=== PATIENT | female | born 1955 | race Caucasian/White ===

== ENCOUNTER → 2016-11-16 | Outpatient (CLI) | payer BC ==
[~2016-11-16] MED LIST: ASA CHILDREN'S81 MG PO; DITROPAN XL5 MG PO; IMDUR DPS30 MG PO; JUICE PLUS PO; MAALOX DPS30 ML PO; MACROBID 100 M100 MG PO; MILK OF MAGNESI10 ML PO; MIRALAX PACKET17 GM PO; NEXIUM 24HR20 M1 PO; NORCO 5-325 TA1 EACH PO; OXY IR DPS5 MG PO; PLAVIX75 MG PO; PRAVACHOL80 MG PO; PRISTIQ50 MG PO; SENOKOT DPS8.6 MG PO; TEARS NATURAL D15 ML OU; TYLENOL DPS325 MG PO; VITAMIN C1000 MG PO; XARELTO20 MG PO
== END | disposition home or self-care (01) ==
LOC: PTH.S 09:50
DX: Z01.818 Encounter for other preprocedural examination (principal)

== ENCOUNTER 2016-12-02 12:09 | Inpatient (IN) | payer BC ==
[~2016-12-02] VITALS: Ht 180.3 cm; Wt 105.8 kg
[2016-12-26] MEDS ORDERED: PRISTIQ50 MG PO (17:55)
[2016-12-26] MEDS ORDERED: XARELTO20 MG PO (17:55)
[2016-12-26] MEDS ORDERED: DITROPAN XL5 MG PO (17:55)
[2016-12-26] MEDS ORDERED: PRAVACHOL80 MG PO (17:55)
[2016-12-26] MEDS ORDERED: NEXIUM 24HR20 M1 PO (17:56)
[2016-12-26] MEDS ORDERED: IMDUR DPS30 MG PO (17:56)
[2016-12-26] MEDS ORDERED: PLAVIX75 MG PO (17:56)
[2016-12-26] MEDS ORDERED: ASA CHILDREN'S81 MG PO (17:57)
[2016-12-26] MEDS ORDERED: VITAMIN C1000 MG PO (17:57)
[2016-12-26] MEDS ORDERED: MACROBID 100 M100 MG PO (17:57)
[2016-12-26] MEDS ORDERED: TEARS NATURAL D15 ML OU (17:58)
[2016-12-26] MEDS ORDERED: JUICE PLUS PO (17:58)
[2016-12-26] MEDS ORDERED: MAALOX DPS30 ML PO (17:59)
[2016-12-26] MEDS ORDERED: MIRALAX PACKET17 GM PO (17:59)
[2016-12-26] MEDS ORDERED: TYLENOL DPS325 MG PO (17:59)
[2016-12-26] MEDS ORDERED: SENOKOT DPS8.6 MG PO (17:59)
[2016-12-26] MEDS ORDERED: MILK OF MAGNESI10 ML PO (18:00)
[2016-12-26] MEDS ORDERED: NORCO 5-325 TA1 EACH PO (18:00)
[2016-12-26] MEDS ORDERED: OXY IR DPS5 MG PO (18:00)
--- NOTE | 2017-01-02 07:28 | OR ---
ADMIT: 12/23/2016 RM/LOC: 522 [facility] MR#: [id number] 2620 [facility] [address] [place] [id number] KARISHMA HYATT [address] [place] [address] Operative/Delivery Room Report SEX: F AGE: 61 : 1955 SURGERY DATE: 12/23/2016 SURGEON: Sarkis Magaña MD [facility] AGENT: Heladio Sears PA-C. PREOPERATIVE DIAGNOSIS: Right knee arthritis. POSTOPERATIVE DIAGNOSIS: Right knee arthritis. PROCEDURE PERFORMED: Right total knee arthroplasty. IMPLANTS: DePuy Attune knee size 6 femur, size 5 tibia, 10 insert and a 38 patella. BLOOD LOSS: 100. TOURNIQUET TIME: 67 minutes. COMPLICATIONS: None. INDICATION: Karishma is a 61-year-old female with right knee arthritis. She had failed conservative management with injections, therapy and arthroscopic surgery in the past. After kind of discussing the risks, benefits and options for knee arthritis we discussed doing total knee arthroplasty. She was to proceed with that and so she is here for that today. DESCRIPTION OF PROCEDURE: The patient was identified in the preoperative holding area. Written informed consent was confirmed, site was marked. Brought to the OR, placed supine. Spinal anesthesia was induced and then MAC. Then we prepped and draped the right leg in the usual sterile fashion. Time- out was performed. Preop antibiotics were confirmed. We examined the leg, brought tourniquet up to 300 and then made a midline incision. I elevated the medial flap and made a standard medial parapatellar arthrotomy. Performed a medial peel and then excised the synovium and the fat pad. Drilled for the intramedullary femoral guide. Put the intramedullary guide in. Did note there was some distal femoral loss on the lateral side but the cut I made there kind of taking 9 off of the medial side and maybe 5 off the lateral side, but a nice concentric cut through the notch. Then presented the proximal tibia and removed the meniscus, and the contents of the notch. After presenting that, put the extramedullary guide on and cut about two off the lateral side, that was the low side and then put a gap tray checker. This got me a real nice well-aligned limited extension after doing the distal femur and proximal tibia cuts. Then went back to the femur, measured it to a 6, placed of cutting guide there, made my fourth cut and then cut for the box, drilled and punched for the keel for the tibia and put my trial components in. Measured up to a 10 insert. This got me real stable extension with full extension, but not too tight. Good stability varus valgus there in extension and then good A to P stability and flexion with good tracking of the patella. ADMIT: 12/23/2016 RM/LOC: 522 [facility] MR#: [id number] [address] [address] KARISHMA HYATT [address] [place] [id number] Operative/Delivery Room Report SEX: F AGE: 61 : 1955 I then everted the patella there and did a freehand cut. Measured a 38 patella punch for that and placed a trial component in there and that tracked very nicely and stable throughout range of motion. Once this was done, filled in the intramedullary guide hole, irrigated, injected 60 mL of 0.25% Marcaine with epinephrine in the remnant of the ACL, PCL, medial and lateral meniscus, the fat pad, synovium, the quadriceps tendon and then irrigated and dried the components. Drilled a couple of little holes in the sclerotic bone on the tibia. Then we mixed the cement on the back table, placed the cement on the components and cemented in the tibia, the femur and the patella with a trial insert in until it was fully cured. It was fully cured at about 13 minutes. Then removed the insert, took the tourniquet down, obtained hemostasis. There was no significant bleeding, just a little bit of general oozing but no big bleeders. After we got kind of good hemostasis and then irrigated once again and then placed a 10 poly in. Again this tracked very nicely and was very stable. We then closed in flexion with #1 Vicryl for the retinacular layer, 0 Vicryl for the deep subcu, 2-0 for the subcu, 4-0 Monocryl for the subcuticular stitch with a perineal glue dressing. She was then placed into a compressive wrap. Anesthesia was withdrawn. She was brought to the postoperative care unit in good condition. No complications. Postoperatively, she will resume Xarelto for DVT prophylaxis. Have OT, PT and pain control. Will have a consult by the medicine service for perioperative medical management. Anticipate her staying here for two days and will be discharged home. Sarkis Magaña MD/ jumana JOB #: [id number] CC: Sarkis Magaña, Attending Physician Teodoro Dietz, Family Physician
--- NOTE | 2017-01-05 07:48 | DS ---
ADMIT: 12/23/2016 RM/LOC: 522 [facility] MR#: [id number] [facility]#: [id number] 2620 [facility] [address] [place] [phone] KARISHMA HYATT [address] [place] [address] General Discharge Summary SEX: F AGE: 61 : 1955 ADMISSION DATE: 12/23/2016 DISCHARGE DATE: 12/25/2016 REASON FOR ADMISSION: Elective right total knee arthroplasty after failing conservative treatment. PREOPERATIVE DIAGNOSIS: Right knee arthritis. POSTOPERATIVE DIAGNOSIS: Right knee arthritis. PROCEDURE PERFORMED: Right total knee arthroplasty. SURGEON: Sarkis Magaña MD TABLE AND DESK FINISHER: Heladio Sears PA-C BLOOD LOSS: 100 mL. TOURNIQUET TIME: 67 minutes. COMPLICATIONS: None. PAST MEDICAL HISTORY: Significant for gallbladder surgery, hysterectomy, prior knee scopes, pulmonary embolism, carpal tunnel release, coronary artery disease, chronic recurrent urinary tract infection, urinary incontinence, hyperlipidemia, and gastroesophageal reflux. HOSPITAL COURSE: The patient was admitted on 12/23/2016, for elective right total knee arthroplasty done successfully without any complications by Dr. Magaña. The patient tolerated the procedure well. The patient did have some problems with the pain medication, tramadol. She felt like her face was on fire, so that was discontinued, and her pain was then controlled with Tylenol and oxycodone. As expected, she did suffer from some acute blood loss anemia. Her hemoglobin dropped to 10.3 on 12/25/2016, but she remained hemodynamically stable and not require blood transfusion. By postoperative day #2, she was safe and stable and participating well with physical therapy. She was ready for discharge home with plans for outpatient physical therapy. DISCHARGE MEDICATIONS: 1. Oxybutynin 5 mg daily. 2. Pristiq 50 mg in the evening. 3. Pravastatin 80 mg in the evening. 4. Xarelto 20 mg every morning for 10 days. 5. Clopidogrel 75 mg Wednesday and . 6. Isosorbide mononitrate 30 mg every morning. 7. Esomeprazole 40 mg in the evening. 8. Nitrofurantoin 100 mg at bedtime. 9. Aspirin 81 mg every morning. 10.Vitamin C 2000 mg twice daily. ADMIT: 12/23/2016 RM/LOC: 522 [facility] MR#: [id number] [address] [address] KARISHMA HYATT [address] [place], [place] [id number] General Discharge Summary SEX: F AGE: 61 : 1955 11.MiraLax 17 g every day. 12.Senokot 2 tablets twice daily. 13.Tylenol 650 mg every 6 hours as needed for pain. 14.Maalox 30 mL every 6 hours as needed for indigestion. 15.Milk of magnesia 10 mL daily as needed. 16.Oxycodone 5 mg every 6 hours as needed. 17.Muir 5/325 mg every 6 hours as needed for pain. DISCHARGE INSTRUCTIONS: The patient was discharged home with plans for outpatient physical therapy per total knee arthroplasty protocol. Follow up in the orthopedic office in 2 weeks for wound check, in 6 weeks with x-ray. Follow up with primary care as directed. SOLOMON Rahman / Sarkis Magaña MD / stella JOB #: [id number] CC: Sarkis Magaña MD, Attending Physician Teodoro Dietz MD, Family Physician
--- NOTE | 2017-02-01 08:35 | CO ---
ADMIT: 12/23/2016 RM/LOC: [facility] MR#: [id number] [address] [address] KARISHMA HYATT [address] [place] [address] Consultation Report SEX: F AGE: 61 : 1955 Corrected: 12/23/2016 0522 njv DATE OF CONSULTATION: 12/21/2016 ATTENDING PHYSICIAN: Sarkis Magaña CONSULTING PHYSICIAN: Chau Ford DO DATE OF PLANNED SURGERY: 12/23/2016 HISTORY OF PRESENT ILLNESS: This is a pleasant 61-year-old female patient, who plans to undergo right knee replacement by Dr. Magaña on Wednesday the . She has a history of gallbladder surgery, hysterectomy, prior knee scopes and in July underwent right knee scope resulting in pulmonary embolism for which she has been taking Xarelto. She also has a history of carpal tunnel surgery, left main 100% coronary occlusion in 2013 requiring angioplasty and chronic Plavix and aspirin management. She has been holding Xarelto, Plavix, and aspirin for the last 10-14 days in preparation for this upcoming surgery. She has a history of chronic recurrent urinary tract infection, urinary incontinence, hyperlipidemia, gastroesophageal reflux. CURRENT MEDICINES: 1. Oxybutynin. 2. Pravastatin. 3. Pristiq. 4. Xarelto. 5. Clopidogrel. 6. Isordil. 7. Nexium. 8. Nitrofurantoin. 9. Naproxen which is on hold. 10.Aspirin which is on hold. 11.Vitamin C juice plus chewables supplements and capsules. 12.Refresh eyedrops. For specifics of dosing, please refer to her admission orders. SOCIAL HISTORY: She is . She is not sure how much to help her is going to be postoperatively, but is going to rely upon him heavily. FAMILY HISTORY: Noncontributory. ALLERGIES: SHE HAS A LIST OF MULTIPLE ALLERGIES INCLUDING SULFA, TRIMETHOPRIM, CEPHALEXIN, CIPRO, TRAMADOL, AND MEPERIDINE. REVIEW OF SYSTEMS: She is not having any chest pain, shortness of breath and reports that her traffic reporter has cleared her for surgery, although we have no formal written clearance. She denies any chest pain, nausea, vomiting, cough, sputum production, fevers, chills, or current urinary symptoms. ADMIT: 12/23/2016 RM/LOC: [facility] MR#: [id number] [address] [address] KARISHMA HYATT [address] [place] [address] Consultation Report SEX: F AGE: 61 : 1955 PHYSICAL EXAMINATION: VITAL SIGNS: She weighs 229 pounds, has a body mass index of 31.9, blood pressure 112/64, and heart rate of 77. NECK: No JVD or bruit. HEART: Regular. LUNGS: Clear. ABDOMEN: Soft. EXTREMITIES: She has good dorsalis pedis pulses bilaterally and no edema. LABORATORY DATA: Her EKG shows sinus rhythm. CBC and basic metabolic profile are within normal. IMPRESSION: Currently stable chronic health issues including an underlying history of recent pulmonary embolism, prior history of significant coronary disease and recurrent urinary tract infections. PLAN: We are going to restart her on Xarelto immediately postop and use the postop knee replacement program. However, we will prescribe 20 mg instead of the 10 mg dose that the protocol calls for. She will use this for the 12 day prescribed post knee protocol. Thereafter, she was told by her doctor that she was to stop Xarelto therapy and be continued on her chronic cardiac, anti- platelet therapies of aspirin and Plavix. We will monitor and help assist with her cares perioperatively. Chau Ford DO/ stella JOB #: [id number] CC: Sarkis Magaña, Attending Physician UNKNOWN, Family Physician Corrected: 12/23/2016 0522 njv
== END 2016-12-25 17:14 | disposition home or self-care (01) | DRG 470 ==
LOC: 5MS 12-23 05:51 → WOR 12-23 05:51 → 5MS 12-23 10:25
PROVIDERS: ADMIT Student in an Organized Health Care Education/Training Program
PROC: 0SRC0J9 Replacement of Right Knee Joint with Synthetic Substitute, Cemented, Open Approach (ICD-10-PCS; principal; 2016-12-23)
DX: M17.11 Unilateral primary osteoarthritis, right knee (principal); D62 Acute posthemorrhagic anemia; F32.9 Major depressive disorder, single episode, unspecified; E78.5 Hyperlipidemia, unspecified; I25.10 Atherosclerotic heart disease of native coronary artery without angina pectoris; R32 Unspecified urinary incontinence; K21.9 Gastro-esophageal reflux disease without esophagitis; Z86.711 Personal history of pulmonary embolism; Z79.01 Long term (current) use of anticoagulants; Z79.82 Long term (current) use of aspirin; Z87.891 Personal history of nicotine dependence